=== PATIENT | female | born 1950 | race Caucasian/White ===

== ENCOUNTER 2018-01-06 15:38 | Inpatient (IN) | payer OTHER ==
[2018-01-06] MEDS: SODIUM CHLORIDE 0.9% 1L BAG IV* (17:42)
[2018-01-06] MEDS: PIPER-TAZO 3.375 GM IV (PMX) 100 ML IVPB (17:43)
[2018-01-06 17:56] LABS: ADD MAN DIFF? NO
[2018-01-06] MEDS: VANCOMYCIN 1 GM (PMX) 250 ML IVPB (18:17)
[2018-01-06 18:28] LABS: INR 0.99; PROTIME 13.2 Sec (11.9-14.9)
[2018-01-06 18:33] LABS: ALANINE AMINOTRANSFERASE 17 IU/L (13-69); ALBUMIN 4.4 g/dl (3.3-4.9); ALBUMIN/GLOBULIN RATIO 1.04; ALKALINE PHOSPHATASE 102 IU/L (42-121); ANION GAP 15 (8-16); ASPARTATE AMINO TRANSFERASE 18 IU/L (15-46); BLOOD UREA NITROGEN 20 mg/dl (7-20); CALCIUM 9.6 mg/dl (8.4-10.2); CARBON DIOXIDE 23 mmol/L (21-31); CHLORIDE 105 mmol/L (97-110); CREATININE 1.35 mg/dl (0.44-1.00); GLUCOSE 106 mg/dl (70-220); POTASSIUM 4.1 mmol/L (3.5-5.1); SODIUM 139 mmol/L (135-144); TOTAL PROTEIN 8.6 g/dl (6.1-8.1)
[2018-01-06 18:34] LABS: LACTIC ACID 2.5 mmol/L (0.5-2.0)
[2018-01-06 18:35] LABS: BASOPHIL # 0.1 10^3/ul (0.0-0.1); BASOPHILS % 0.7 % (0.0-2.0); EOSINOPHILS # 0.8 10^3/ul (0.0-0.5); EOSINOPHILS % 5.9 % (0.0-7.0); HEMATOCRIT 30.2 % (37.0-47.0); HEMOGLOBIN 9.1 g/dl (12.0-16.0); LYMPHOCYTES # 2.3 10^3/ul (0.8-2.9); LYMPHOCYTES % 17.5 % (15.0-51.0); MEAN CORPUSCULAR HEMOGLOBIN 24.5 pg (29.0-33.0); MEAN CORPUSCULAR HGB CONC 30.1 g/dl (32.0-37.0); MEAN CORPUSCULAR VOLUME 81.4 fl (82.0-101.0); MEAN PLATELET VOLUME 8.2 fl (7.4-10.4); MONOCYTE # 0.8 10^3/ul (0.3-0.9); MONOCYTES % 6.1 % (0.0-11.0); NEUTROPHIL # 9.2 10^3/ul (1.6-7.5); NEUTROPHILS % 69.2 % (39.0-77.0); PLATELET COUNT 509 10^3/UL (140-415); RED BLOOD COUNT 3.71 10^6/ul (4.20-5.40); RED CELL DISTRIBUTION WIDTH 19.5 % (11.5-14.5)
[2018-01-06 18:35] LABS: WHITE BLOOD COUNT 13.3 10^3/ul (4.8-10.8)
[2018-01-06 18:45] LABS: TROPONIN-I < 0.010 ng/ml (0.000-0.120)
[2018-01-06] MEDS ORDERED: morphine 2 MG INJ IV (19:00)
[2018-01-06] MEDS ORDERED: ONDANSETRON 4 MG INJ IV ×2 (19:00)
[2018-01-06] MEDS ORDERED: ACETAMINOPHEN 325 MG TAB PO (19:00)
[2018-01-06 19:09] LABS: LACTIC ACID 1.6 mmol/L (0.5-2.0)
[2018-01-06 22:55] LABS: LACTIC ACID 1.3 mmol/L (0.5-2.0)
[2018-01-06] MEDS: SOD CHLORIDE 0.9% 1,000 ML IV (23:15)
[2018-01-07] MEDS: SOD CHLORIDE 0.9% 1,000 ML IV ×2 (05:00→08:50)
[2018-01-07] MEDS ORDERED: ALBUTEROL/IPRATROPIUM (NEB) 3 ML AMP HHN (05:30)
[2018-01-07] MEDS ORDERED: VANCOMYCIN IV PER PHARMACY XX (05:30)
[2018-01-07] MEDS ORDERED: NACL 0.9% 3 ML SYG IV (05:30)
[2018-01-07] MEDS ORDERED: ONDANSETRON 4 MG INJ IV (05:30)
[2018-01-07] MEDS ORDERED: ACETAMINOPHEN 325 MG TAB PO (05:30)
[2018-01-07] MEDS: LEVOTHYROXINE 175 MCG TAB PO (06:30)
[2018-01-07] MEDS: PANTOPRAZOLE (EC) 40 MG TAB PO (06:56)
[2018-01-07] MEDS: CEFEPIME 1GM/50 ML (PMX) 50 ML IVPB ×2 (08:44→20:10)
[2018-01-07] MEDS: FERROUS SULFATE (EC) 325 MG TAB PO (08:44)
[2018-01-07] MEDS: ASCORBIC ACID 250 MG TAB PO (08:44)
[2018-01-07] MEDS: GABAPENTIN 100 MG CAP PO ×3 (08:44→20:11)
[2018-01-07] MEDS: MULTIVITAMINS THERAPEUTIC TAB PO (08:44)
[2018-01-07] MEDS: ASPIRIN (EC) 81 MG TAB PO (08:44)
[2018-01-07] MEDS: FOLIC ACID 1 MG TAB PO (08:44)
[2018-01-07] MEDS: HEPARIN 5,000 UNIT/0.5 ML VIAL SC ×2 (08:50→20:22)
[2018-01-07 09:02] LABS: ADD MAN DIFF? NO
[2018-01-07 09:07] LABS: WHITE BLOOD COUNT 9.8 10^3/ul (4.8-10.8)
[2018-01-07 09:07] LABS: BASOPHIL # 0.1 10^3/ul (0.0-0.1); BASOPHILS % 0.7 % (0.0-2.0); EOSINOPHILS # 0.9 10^3/ul (0.0-0.5); HEMATOCRIT 28.2 % (37.0-47.0); HEMOGLOBIN 8.3 g/dl (12.0-16.0); LYMPHOCYTES # 1.4 10^3/ul (0.8-2.9); LYMPHOCYTES % 14.7 % (15.0-51.0); MEAN CORPUSCULAR HEMOGLOBIN 24.7 pg (29.0-33.0); MEAN CORPUSCULAR HGB CONC 29.4 g/dl (32.0-37.0); MEAN CORPUSCULAR VOLUME 83.9 fl (82.0-101.0); MEAN PLATELET VOLUME 8.5 fl (7.4-10.4); MONOCYTE # 0.5 10^3/ul (0.3-0.9); MONOCYTES % 5.4 % (0.0-11.0); NEUTROPHIL # 6.8 10^3/ul (1.6-7.5); NEUTROPHILS % 69.6 % (39.0-77.0); PLATELET COUNT 486 10^3/UL (140-415); RED BLOOD COUNT 3.36 10^6/ul (4.20-5.40); RED CELL DISTRIBUTION WIDTH 19.4 % (11.5-14.5)
[2018-01-07 09:39] LABS: ALANINE AMINOTRANSFERASE 21 IU/L (13-69); ALBUMIN 3.2 g/dl (3.3-4.9); ALKALINE PHOSPHATASE 75 IU/L (42-121); ANION GAP 12 (8-16); ASPARTATE AMINO TRANSFERASE 12 IU/L (15-46); BILIRUBIN,INDIRECT 0.1 mg/dl (0-1.1); BILIRUBIN,TOTAL 0.1 mg/dl (0.2-1.3); BLOOD UREA NITROGEN 19 mg/dl (7-20); CALCIUM 8.7 mg/dl (8.4-10.2); CARBON DIOXIDE 21 mmol/L (21-31); CHLORIDE 111 mmol/L (97-110); CREATININE 1.07 mg/dl (0.44-1.00); GLUCOSE 101 mg/dl (70-220); POTASSIUM 4.6 mmol/L (3.5-5.1); SODIUM 139 mmol/L (135-144); TOTAL PROTEIN 6.4 g/dl (6.1-8.1)
[2018-01-07 10:10] LABS: ADD UMIC YES; UR ASCORBIC ACID 40 mg/dL (NEGATIVE); UR BACTERIA FEW /HPF (NONE SEEN); UR BILIRUBIN (Dip) NEGATIVE (NEGATIVE); UR BLOOD (Dip) 1+ mg/dL (NEGATIVE); UR CLARITY CLOUDY (CLEAR); UR COLOR YELLOW (YELLOW); UR GLUCOSE (Dip) NEGATIVE (NEGATIVE); UR KETONES (Dip) NEGATIVE (NEGATIVE); UR LEUKOCYTE ESTERASE (Dip) 3+ Leu/ul (NEGATIVE); UR MUCUS FEW /HPF (NONE SEEN); UR NITRITE (Dip) NEGATIVE (NEGATIVE); UR RBC 11 /HPF (0-5); UR SPECIFIC GRAVITY (Dip) 1.016 (1.003-1.030); UR SQUAMOUS EPITHELIAL CELL MODERATE /HPF (FEW); UR TOTAL PROTEIN (Dip) 1+ mg/dl (NEGATIVE); UR UROBILINOGEN (Dip) NEGATIVE (NEGATIVE); UR WBC 112 /HPF (0-5)
[2018-01-07 12:34] LABS: THYROID STIMULATING HORMONE 0.367 MIU/L (0.465-4.680)
[2018-01-07] MEDS: VANCOMYCIN 1.25 GM in SOD CHLORIDE 0.9% 250 ML IVPB (16:38)
[2018-01-07] MEDS: COLLAGENASE 5 GM (UD JAR) TOP (16:38)
[2018-01-07] MEDS ORDERED: VANCOMYCIN 1.25 GM in SOD CHLORIDE 0.9% 250 ML IVPB (18:00)
[2018-01-07] MEDS: HYDROCODONE/APAP (5/325) TAB PO (23:06)
[2018-01-08] MEDS: SOD CHLORIDE 0.9% 1,000 ML IV (02:21)
[2018-01-08 05:35] LABS: ADD MAN DIFF? NO
[2018-01-08 05:50] LABS: WHITE BLOOD COUNT 9.1 10^3/ul (4.8-10.8)
[2018-01-08 05:50] LABS: BASOPHIL # 0.1 10^3/ul (0.0-0.1); BASOPHILS % 0.8 % (0.0-2.0); EOSINOPHILS # 0.8 10^3/ul (0.0-0.5); EOSINOPHILS % 8.7 % (0.0-7.0); HEMATOCRIT 26.6 % (37.0-47.0); HEMOGLOBIN 7.9 g/dl (12.0-16.0); MEAN CORPUSCULAR HEMOGLOBIN 24.9 pg (29.0-33.0); MEAN CORPUSCULAR HGB CONC 29.7 g/dl (32.0-37.0); MEAN CORPUSCULAR VOLUME 83.9 fl (82.0-101.0); MEAN PLATELET VOLUME 8.6 fl (7.4-10.4); MONOCYTE # 0.5 10^3/ul (0.3-0.9); MONOCYTES % 5.7 % (0.0-11.0); NEUTROPHIL # 5.7 10^3/ul (1.6-7.5); NEUTROPHILS % 62.4 % (39.0-77.0); PLATELET COUNT 440 10^3/UL (140-415); RED BLOOD COUNT 3.17 10^6/ul (4.20-5.40); RED CELL DISTRIBUTION WIDTH 19.6 % (11.5-14.5)
[2018-01-08] MEDS: PANTOPRAZOLE (EC) 40 MG TAB PO (06:23)
[2018-01-08] MEDS: LEVOTHYROXINE 175 MCG TAB PO (06:24)
[2018-01-08 06:36] LABS: ANION GAP 9 (8-16); BLOOD UREA NITROGEN 16 mg/dl (7-20); CALCIUM 8.5 mg/dl (8.4-10.2); CARBON DIOXIDE 21 mmol/L (21-31); CHLORIDE 113 mmol/L (97-110); CREATININE 1.08 mg/dl (0.44-1.00); GLUCOSE 105 mg/dl (70-220); PHOSPHORUS 3.8 mg/dl (2.5-4.9); POTASSIUM 4.2 mmol/L (3.5-5.1); SODIUM 139 mmol/L (135-144)
[2018-01-08] MEDS: MULTIVITAMINS THERAPEUTIC TAB PO (08:52)
[2018-01-08] MEDS: GABAPENTIN 100 MG CAP PO ×3 (08:52→20:30)
[2018-01-08] MEDS: CEFEPIME 1GM/50 ML (PMX) 50 ML IVPB ×2 (08:52→21:35)
[2018-01-08] MEDS: ASCORBIC ACID 250 MG TAB PO (08:52)
[2018-01-08] MEDS: COLLAGENASE 5 GM (UD JAR) TOP (08:53)
[2018-01-08] MEDS: FERROUS SULFATE (EC) 325 MG TAB PO (08:53)
[2018-01-08] MEDS: ASPIRIN (EC) 81 MG TAB PO (08:53)
[2018-01-08] MEDS: FOLIC ACID 1 MG TAB PO (08:53)
[2018-01-08] MEDS: HEPARIN 5,000 UNIT/0.5 ML VIAL SC ×2 (08:56→20:34)
[2018-01-08] MEDS: VANCOMYCIN 1.25 GM in SOD CHLORIDE 0.9% 250 ML IVPB (16:14)
[2018-01-09 05:37] LABS: ADD MAN DIFF? NO
[2018-01-09 05:54] LABS: BASOPHIL # 0.1 10^3/ul (0.0-0.1); BASOPHILS % 0.7 % (0.0-2.0); EOSINOPHILS # 0.8 10^3/ul (0.0-0.5); EOSINOPHILS % 7.6 % (0.0-7.0); HEMATOCRIT 26.3 % (37.0-47.0); HEMOGLOBIN 7.9 g/dl (12.0-16.0); LYMPHOCYTES % 19.4 % (15.0-51.0); MEAN CORPUSCULAR HEMOGLOBIN 24.8 pg (29.0-33.0); MEAN CORPUSCULAR VOLUME 82.4 fl (82.0-101.0); MEAN PLATELET VOLUME 8.7 fl (7.4-10.4); MONOCYTE # 0.6 10^3/ul (0.3-0.9); MONOCYTES % 6.1 % (0.0-11.0); NEUTROPHIL # 6.7 10^3/ul (1.6-7.5); NEUTROPHILS % 65.7 % (39.0-77.0); PLATELET COUNT 498 10^3/UL (140-415); RED BLOOD COUNT 3.19 10^6/ul (4.20-5.40)
[2018-01-09 05:54] LABS: WHITE BLOOD COUNT 10.2 10^3/ul (4.8-10.8)
[2018-01-09 06:23] LABS: ANION GAP 11 (8-16); BLOOD UREA NITROGEN 13 mg/dl (7-20); CALCIUM 8.9 mg/dl (8.4-10.2); CARBON DIOXIDE 22 mmol/L (21-31); CHLORIDE 110 mmol/L (97-110); CREATININE 1.05 mg/dl (0.44-1.00); GLUCOSE 95 mg/dl (70-220); PHOSPHORUS 3.3 mg/dl (2.5-4.9); POTASSIUM 4.4 mmol/L (3.5-5.1); SODIUM 139 mmol/L (135-144)
[2018-01-09] MEDS: PANTOPRAZOLE (EC) 40 MG TAB PO (06:40)
[2018-01-09 07:08] LABS: FREE T4 (FREE THYROXINE) 1.19 ng/dl (0.78-2.44)
[2018-01-09] MEDS: LEVOTHYROXINE 175 MCG TAB PO (07:52)
[2018-01-09] MEDS: COLLAGENASE 5 GM (UD JAR) TOP (08:01)
[2018-01-09] MEDS: FOLIC ACID 1 MG TAB PO (08:01)
[2018-01-09] MEDS: ASCORBIC ACID 250 MG TAB PO (08:01)
[2018-01-09] MEDS: FERROUS SULFATE (EC) 325 MG TAB PO (08:01)
[2018-01-09] MEDS: GABAPENTIN 100 MG CAP PO ×3 (08:01→21:44)
[2018-01-09] MEDS: CEFEPIME 1GM/50 ML (PMX) 50 ML IVPB ×2 (08:01→21:45)
[2018-01-09] MEDS: ASPIRIN (EC) 81 MG TAB PO (08:01)
[2018-01-09] MEDS: MULTIVITAMINS THERAPEUTIC TAB PO (08:01)
[2018-01-09] MEDS: HEPARIN 5,000 UNIT/0.5 ML VIAL SC ×2 (08:03→21:00)
[2018-01-09] MEDS: VANCOMYCIN 1.25 GM in SOD CHLORIDE 0.9% 250 ML IVPB (15:49)
[2018-01-10 03:17] LABS: SODIUM,URINE RANDOM 110 mmol/L (30-90)
[2018-01-10 03:17] LABS: CREATININE,URINE RANDOM 30.41 mg/dl (20-320)
[2018-01-10 04:09] LABS: ADD UMIC YES; UR ASCORBIC ACID NEGATIVE (NEGATIVE); UR BACTERIA FEW /HPF (NONE SEEN); UR BILIRUBIN (Dip) NEGATIVE (NEGATIVE); UR BLOOD (Dip) 2+ mg/dL (NEGATIVE); UR BUDDING YEAST MODERATE /HPF (NONE SEEN); UR CLARITY CLOUDY (CLEAR); UR COLOR YELLOW (YELLOW); UR GLUCOSE (Dip) NEGATIVE (NEGATIVE); UR KETONES (Dip) NEGATIVE (NEGATIVE); UR LEUKOCYTE ESTERASE (Dip) 3+ Leu/ul (NEGATIVE); UR NITRITE (Dip) NEGATIVE (NEGATIVE); UR RBC 8 /HPF (0-5); UR SPECIFIC GRAVITY (Dip) 1.006 (1.003-1.030); UR SQUAMOUS EPITHELIAL CELL FEW /HPF (FEW); UR TOTAL PROTEIN (Dip) NEGATIVE (NEGATIVE); UR UROBILINOGEN (Dip) NEGATIVE (NEGATIVE); UR WBC 5 /HPF (0-5)
[2018-01-10] MEDS: LEVOTHYROXINE 175 MCG TAB PO (06:18)
[2018-01-10] MEDS: PANTOPRAZOLE (EC) 40 MG TAB PO (07:02)
[2018-01-10] MEDS: ASPIRIN (EC) 81 MG TAB PO (08:59)
[2018-01-10] MEDS: CEFEPIME 1GM/50 ML (PMX) 50 ML IVPB (08:59)
[2018-01-10] MEDS: GABAPENTIN 100 MG CAP PO ×3 (08:59→21:00)
[2018-01-10] MEDS: FERROUS SULFATE (EC) 325 MG TAB PO (08:59)
[2018-01-10] MEDS: ASCORBIC ACID 250 MG TAB PO (08:59)
[2018-01-10] MEDS: FOLIC ACID 1 MG TAB PO (08:59)
[2018-01-10] MEDS: COLLAGENASE 5 GM (UD JAR) TOP (09:00)
[2018-01-10] MEDS: MULTIVITAMINS THERAPEUTIC TAB PO (09:00)
[2018-01-10] MEDS: HEPARIN 5,000 UNIT/0.5 ML VIAL SC ×2 (09:01→21:01)
[2018-01-10 16:00] LABS: ADD MAN DIFF? NO
[2018-01-10] MEDS: CEFTRIAXONE 1 GM/50 ML (PMX) 50 ML IVPB (16:00)
[2018-01-10 16:05] LABS: BASOPHIL # 0.1 10^3/ul (0.0-0.1); BASOPHILS % 0.6 % (0.0-2.0); EOSINOPHILS # 0.8 10^3/ul (0.0-0.5); EOSINOPHILS % 6.7 % (0.0-7.0); HEMATOCRIT 30.2 % (37.0-47.0); HEMOGLOBIN 9.1 g/dl (12.0-16.0); LYMPHOCYTES % 16.2 % (15.0-51.0); MEAN CORPUSCULAR HEMOGLOBIN 24.9 pg (29.0-33.0); MEAN CORPUSCULAR HGB CONC 30.1 g/dl (32.0-37.0); MEAN CORPUSCULAR VOLUME 82.7 fl (82.0-101.0); MEAN PLATELET VOLUME 8.6 fl (7.4-10.4); MONOCYTE # 0.7 10^3/ul (0.3-0.9); MONOCYTES % 5.7 % (0.0-11.0); NEUTROPHIL # 8.8 10^3/ul (1.6-7.5); NEUTROPHILS % 70.2 % (39.0-77.0); PLATELET COUNT 491 10^3/UL (140-415); RED BLOOD COUNT 3.65 10^6/ul (4.20-5.40); RED CELL DISTRIBUTION WIDTH 18.9 % (11.5-14.5)
[2018-01-10 16:05] LABS: WHITE BLOOD COUNT 12.6 10^3/ul (4.8-10.8)
[2018-01-10 16:29] LABS: ANION GAP 16 (8-16); BLOOD UREA NITROGEN 13 mg/dl (7-20); CALCIUM 9.4 mg/dl (8.4-10.2); CARBON DIOXIDE 20 mmol/L (21-31); CHLORIDE 106 mmol/L (97-110); CREATININE 1.03 mg/dl (0.44-1.00); GLUCOSE 123 mg/dl (70-220); PHOSPHORUS 3.9 mg/dl (2.5-4.9); POTASSIUM 4.5 mmol/L (3.5-5.1); SODIUM 137 mmol/L (135-144)
[2018-01-10 16:32] LABS: VANCOMYCIN,TROUGH 15.5 ug/ml (10.0-20.0)
[2018-01-10] MEDS ORDERED: LIDOCAINE 1% (MPF) 5 ML VIAL SC (18:00)
[2018-01-10] MEDS: BALSAM PERU/CASTOR OIL 60 GM TUBE TOP (21:08)
[2018-01-10] MEDS: NYSTATIN 30 GM POWDER BTL TOP (21:08)
[2018-01-10] MEDS: AMOXICILLIN 500 MG CAP PO (21:59)
[2018-01-10] MEDS ORDERED: morphine LIQ (10 MG/5 ML) CUP PO (23:45)
[2018-01-11] MEDS: LEVOTHYROXINE 175 MCG TAB PO (06:08)
[2018-01-11] MEDS: PANTOPRAZOLE (EC) 40 MG TAB PO (06:09)
[2018-01-11] MEDS: AMOXICILLIN 500 MG CAP PO ×3 (08:39→22:14)
[2018-01-11] MEDS: HEPARIN 5,000 UNIT/0.5 ML VIAL SC ×2 (09:00→20:53)
[2018-01-11] MEDS: NYSTATIN 30 GM POWDER BTL TOP ×2 (09:45→20:55)
[2018-01-11] MEDS: ASPIRIN (EC) 81 MG TAB PO (09:45)
[2018-01-11] MEDS: COLLAGENASE 5 GM (UD JAR) TOP (09:45)
[2018-01-11] MEDS: FERROUS SULFATE (EC) 325 MG TAB PO (09:45)
[2018-01-11] MEDS: GABAPENTIN 100 MG CAP PO ×3 (09:45→20:52)
[2018-01-11] MEDS: MULTIVITAMINS THERAPEUTIC TAB PO (09:45)
[2018-01-11] MEDS: FOLIC ACID 1 MG TAB PO (09:45)
[2018-01-11] MEDS: BALSAM PERU/CASTOR OIL 60 GM TUBE TOP ×2 (09:46→20:55)
[2018-01-11] MEDS: ASCORBIC ACID 250 MG TAB PO (09:46)
[2018-01-11 14:32] LABS: CREATININE, RANDOM URINE 36 mg/dL (20-320); MICROALBUMIN 1.6 mg/dL; MICROALBUMIN/CREATININE RATIO 44 (<30)
[2018-01-11] MEDS: CEPHALEXIN 500 MG CAP PO ×2 (15:31→22:14)
[2018-01-11] MEDS: L ACIDOPHIL/B LACTIS/B LONGUM CAPSULE PO (20:52)
[2018-01-12 05:45] LABS: ADD MAN DIFF? NO
[2018-01-12 06:19] LABS: BASOPHIL # 0.1 10^3/ul (0.0-0.1); BASOPHILS % 0.8 % (0.0-2.0); EOSINOPHILS # 1.1 10^3/ul (0.0-0.5); EOSINOPHILS % 8.9 % (0.0-7.0); HEMATOCRIT 27.8 % (37.0-47.0); HEMOGLOBIN 8.4 g/dl (12.0-16.0); LYMPHOCYTES # 2.5 10^3/ul (0.8-2.9); LYMPHOCYTES % 20.7 % (15.0-51.0); MEAN CORPUSCULAR HEMOGLOBIN 24.9 pg (29.0-33.0); MEAN CORPUSCULAR HGB CONC 30.2 g/dl (32.0-37.0); MEAN CORPUSCULAR VOLUME 82.2 fl (82.0-101.0); MEAN PLATELET VOLUME 8.3 fl (7.4-10.4); MONOCYTE # 0.8 10^3/ul (0.3-0.9); MONOCYTES % 6.4 % (0.0-11.0); NEUTROPHIL # 7.4 10^3/ul (1.6-7.5); PLATELET COUNT 500 10^3/UL (140-415); RED BLOOD COUNT 3.38 10^6/ul (4.20-5.40); RED CELL DISTRIBUTION WIDTH 18.8 % (11.5-14.5)
[2018-01-12] MEDS: LEVOTHYROXINE 175 MCG TAB PO (06:21)
[2018-01-12] MEDS: PANTOPRAZOLE (EC) 40 MG TAB PO (06:21)
[2018-01-12 08:21] LABS: PHOSPHORUS 4.3 mg/dl (2.5-4.9)
[2018-01-12 08:25] LABS: ALANINE AMINOTRANSFERASE 11 IU/L (13-69); ALBUMIN 3.7 g/dl (3.3-4.9); ALKALINE PHOSPHATASE 75 IU/L (42-121); ANION GAP 13 (8-16); ASPARTATE AMINO TRANSFERASE 17 IU/L (15-46); BILIRUBIN,INDIRECT 0.1 mg/dl (0-1.1); BILIRUBIN,TOTAL 0.1 mg/dl (0.2-1.3); BLOOD UREA NITROGEN 14 mg/dl (7-20); CALCIUM 9.2 mg/dl (8.4-10.2); CARBON DIOXIDE 24 mmol/L (21-31); CHLORIDE 105 mmol/L (97-110); CREATININE 0.98 mg/dl (0.44-1.00); GLUCOSE 101 mg/dl (70-220); POTASSIUM 4.6 mmol/L (3.5-5.1); SODIUM 137 mmol/L (135-144); TOTAL PROTEIN 7.4 g/dl (6.1-8.1)
[2018-01-12] MEDS: ASCORBIC ACID 250 MG TAB PO (09:00)
[2018-01-12] MEDS: MULTIVITAMINS THERAPEUTIC TAB PO (09:32)
[2018-01-12] MEDS: CEPHALEXIN 500 MG CAP PO ×3 (09:32→21:18)
[2018-01-12] MEDS: AMOXICILLIN 500 MG CAP PO ×3 (09:32→21:18)
[2018-01-12] MEDS: FERROUS SULFATE (EC) 325 MG TAB PO (09:33)
[2018-01-12] MEDS: L ACIDOPHIL/B LACTIS/B LONGUM CAPSULE PO ×2 (09:33→21:18)
[2018-01-12] MEDS: FOLIC ACID 1 MG TAB PO (09:33)
[2018-01-12] MEDS: GABAPENTIN 100 MG CAP PO ×3 (09:33→21:18)
[2018-01-12] MEDS: ASPIRIN (EC) 81 MG TAB PO (09:33)
[2018-01-12] MEDS: HEPARIN 5,000 UNIT/0.5 ML VIAL SC ×2 (09:34→21:19)
[2018-01-12] MEDS: NYSTATIN 30 GM POWDER BTL TOP ×2 (09:45→21:19)
[2018-01-12] MEDS: COLLAGENASE 5 GM (UD JAR) TOP (09:45)
[2018-01-12] MEDS: BALSAM PERU/CASTOR OIL 60 GM TUBE TOP ×2 (09:45→21:19)
[2018-01-12 11:55] LABS: TRIIODOTHYRONINE 1.09 ng/ml (0.97-1.69)
[2018-01-13 05:37] LABS: HEMOGLOBIN A1C 6.1 % (0-5.9)
[2018-01-13 05:49] LABS: CHOL/HDL RATIO 5.7 RATIO; HDL CHOLESTEROL 33 mg/dl (35-98); LDL CHOLESTEROL,CALCULATED 123 mg/dl; TRIGLYCERIDES 167 mg/dl (0-149)
[2018-01-13 05:49] LABS: CHOLESTEROL 189 mg/dl (100-200)
[2018-01-13] MEDS: LEVOTHYROXINE 175 MCG TAB PO (06:33)
[2018-01-13] MEDS: AMOXICILLIN 500 MG CAP PO ×3 (06:33→22:24)
[2018-01-13] MEDS: CEPHALEXIN 500 MG CAP PO ×3 (06:33→22:24)
[2018-01-13] MEDS: PANTOPRAZOLE (EC) 40 MG TAB PO (06:33)
[2018-01-13] MEDS: GABAPENTIN 100 MG CAP PO ×3 (08:22→22:24)
[2018-01-13] MEDS: L ACIDOPHIL/B LACTIS/B LONGUM CAPSULE PO ×2 (08:22→22:24)
[2018-01-13] MEDS: FOLIC ACID 1 MG TAB PO (08:22)
[2018-01-13] MEDS: BALSAM PERU/CASTOR OIL 60 GM TUBE TOP ×2 (08:23→22:25)
[2018-01-13] MEDS: COLLAGENASE 5 GM (UD JAR) TOP (08:23)
[2018-01-13] MEDS: NYSTATIN 30 GM POWDER BTL TOP ×2 (08:25→22:24)
[2018-01-13] MEDS: HEPARIN 5,000 UNIT/0.5 ML VIAL SC ×2 (08:27→22:25)
[2018-01-14] MEDS: AMOXICILLIN 500 MG CAP PO ×2 (05:56→14:23)
[2018-01-14] MEDS: CEPHALEXIN 500 MG CAP PO ×2 (05:56→14:24)
[2018-01-14] MEDS: PANTOPRAZOLE (EC) 40 MG TAB PO (05:59)
[2018-01-14] MEDS: LEVOTHYROXINE 175 MCG TAB PO (06:00)
[2018-01-14] MEDS: L ACIDOPHIL/B LACTIS/B LONGUM CAPSULE PO (09:41)
[2018-01-14] MEDS: NYSTATIN 30 GM POWDER BTL TOP (09:42)
[2018-01-14] MEDS: GABAPENTIN 100 MG CAP PO ×2 (09:42→14:24)
[2018-01-14] MEDS: FOLIC ACID 1 MG TAB PO (09:42)
[2018-01-14] MEDS: BALSAM PERU/CASTOR OIL 60 GM TUBE TOP (09:42)
[2018-01-14] MEDS: COLLAGENASE 5 GM (UD JAR) TOP (09:42)
[2018-01-14] MEDS: HEPARIN 5,000 UNIT/0.5 ML VIAL SC (10:12)
[2018-01-17] MEDS ORDERED: MULTIVITAMINS THERAPEUTIC TAB PO (09:00)
[2018-01-17] MEDS ORDERED: FERROUS SULFATE (EC) 325 MG TAB PO (09:00)
[2018-01-17] MEDS ORDERED: ASCORBIC ACID 250 MG TAB PO (09:00)
[2018-01-17] MEDS ORDERED: ASPIRIN (EC) 81 MG TAB PO (09:00)
== END 2018-01-14 17:30 | DRG 871 ==
LOC: PP2 01-08 01:45 → E/R 15:38 → TEL 18:54
DX: A41.9 Sepsis, unspecified organism (principal); L89.43 Pressure ulcer of contiguous site of back, buttock and hip, stage 3; N17.9 Acute kidney failure, unspecified; Z68.41 Body mass index [BMI] 40.0-44.9, adult; N30.00 Acute cystitis without hematuria; L89.152 Pressure ulcer of sacral region, stage 2; L89.622 Pressure ulcer of left heel, stage 2; L89.612 Pressure ulcer of right heel, stage 2; E66.9 Obesity, unspecified; R62.7 Adult failure to thrive; B96.20 Unspecified Escherichia coli [E. coli] as the cause of diseases classified elsewhere; D50.9 Iron deficiency anemia, unspecified; E03.9 Hypothyroidism, unspecified; K21.9 Gastro-esophageal reflux disease without esophagitis; R73.03 Prediabetes; B95.2 Enterococcus as the cause of diseases classified elsewhere; B96.4 Proteus (mirabilis) (morganii) as the cause of diseases classified elsewhere; Z16.11 Resistance to penicillins; Z16.29 Resistance to other single specified antibiotic; Z71.3 Dietary counseling and surveillance; Z91.11 Patient's noncompliance with dietary regimen; Z59.0 Homelessness; Z99.3 Dependence on wheelchair; Z87.891 Personal history of nicotine dependence
CPT/HCPCS: 36415; 76775; 80048; 80053; 80061; 80202; 81001; 81003; 82043; 83036; 83605; 83735; 84100; 84155; 84300; 84439; 84443; 84480; 84484; 85025; 85610; 85730; 87040; 87045; 87070; 87081; 87086; 93005; 96365; 96375; 97110; 97162; 97530; 99291-25